=== PATIENT | male | born 1960 | race Caucasian/White ===

== ENCOUNTER → 2016-08-15 11:08 | Outpatient (CLI) | payer BC ==
[2016-03-01 08:27] VITALS: BMI 36.5
[~2016-08-15 11:08] MED LIST: CALAN120 MG PO; FLOMAX0.4 MG PO; IMITREX100 MG PO; IMITREX20 MG/SPRA NS; LIVALO4 MG PO; NEXIUM40 MG PO; TESTOSTERON200 MG/ML IM; ZONEGRAN100 MG PO
== END | disposition home or self-care (01) ==
LOC: D.CT 08-12 15:30
DX: R10.9 Unspecified abdominal pain (principal)

== ENCOUNTER → 2016-09-19 12:00 | Outpatient (CLI) | payer BC ==
[2016-03-01 08:27] VITALS: BMI 36.5
== END | disposition home or self-care (01) ==
LOC: D.MRI 09-15 12:31
DX: G37.3 Acute transverse myelitis in demyelinating disease of central nervous system (principal); G89.29 Other chronic pain